=== PATIENT | male | born 2005 | race Caucasian/White ===

== ENCOUNTER 2023-12-27 21:29 | Emergency (ER) | payer OTHER, SELFPAY ==
--- NOTE | ~2023-12-27 | XR_ITS ---
EXAMINATION: XR CHEST CLINICAL INFORMATION: Cough COMPARISON: None available. TECHNIQUE: 2 views of the chest were obtained. FINDINGS: Patchy consolidation is seen in the right upper lobe. The exam is otherwise unremarkable XR/XR chest 2V IMPRESSION: Right upper lobe pneumonia. Electronically signed by: Tawanda Reis MD 12/27/2023 11:10 PM EDT
[2023-12-27 21:33] VITALS: BP 141/81; PULSE 96; RESP 18; TEMP 36.8; O2SAT 99; BMI 37.4
--- NOTE | 2023-12-27 21:45 | ED.URI ---
HPI - URI/Sore Throat General Chief Complaint: Upper Respiratory Symptoms Stated Complaint: coughing/coughed up blood Time Seen by Provider: 12/27/23 21:42 Source: patient and old records reviewed Mode of arrival: ambulatory Limitations: no limitations History of Present Illness ED Provider: MAYKEL NG Narrative: 18 yo male with no sig PMH he has hx of smoking here with c/o 4 days of cough and then he has mucous and sputum production has seen blood in it before. He is not on thinners. He has no travel hx of exposures. He notes cough is much worse at night. When this first started he felt sweats and chills but that is much better. He notes at the beginning he had a fever of 101. Went to urgent care center who prescribed flonase and dwayne SHERMAN elicited complaint: cough and nasal congestion Onset (ago): day(s) (4) Consistency: constant Severity: moderate Description of mucous: yellow and other (some hemoptysis this AM) Able to tolerate fluids by mouth: Yes Exacerbating factors: other (coughing) Relieving factors: nothing Associated symptoms: fever, chills, myalgias, headache, nasal congestion and cough Treatments prior to arrival: none Related Data Previous Rx's ?Medication ?Instructions ?Recorded amoxicillin 875 mg-potassium 1 tab PO BID #14 tabs 12/27/23 clavulanate 125 mg tablet azithromycin 250 mg tablet 250 mg PO DAILY 4 days #4 tabs 12/27/23 Allergies Allergy/AdvReac Type Severity Reaction Status Date / Time No Known Allergies Allergy Verified 12/27/23 21:34 Review of Systems Review of Systems: Constitutional : pos Fever, pos Chills, No Fatigue ENT/Mouth : No sore throat, No Rhinorrhea Eyes: No Eye Pain, No Swelling, No Redness Cardiovascular : No Chest Pain, No SOB, No Dyspnea on Exertion Respiratory :pos Cough, pos Sputum Gastrointestinal : No Nausea, No Vomiting, No Diarrhea, No abdominal Pain Genitourinary : No Dysuria, No Urinary Frequency, No Hematuria, Musculoskeletal : No joint pain, No Myalgias, No Joint Swelling Skin : No Skin Lesions, No rash Neuro : No Weakness, No Numbness, No Dizziness, positive Headache Psych : No Anxiety/Panic, No Depression All other systems reviewed and are negative PENDING SALE TO [facility] Past Medical History Attestation statement: The following information was validated with the patient. Source: old records reviewed Medical History No pertinent past medical history Social History Social History (Updated 12/27/23 @ 22:26 by Simran Thacker DO) Patient Tobacco Use Status: Current everyday Tobacco user Smoked in Last 30 Days: No Use of substances other than those prescribed or required for medical reasons: Yes Substance Use Type: Marijuana Substance Use Frequency: Monthly Last Used Substance: Weeks (ago) Any prior treatment program specific to substance use: No Advance Directives: No Advance Directives Information Provided: No Physical Exam Vital Signs: Vital Signs: Last Vital Signs Temp 97.6 F 12/27/23 22:58 Pulse 86 12/27/23 22:58 Resp 18 12/27/23 22:58 BP 129/73 12/27/23 22:58 Pulse Ox 98 12/27/23 22:58 O2 Del Method Room Air 12/27/23 22:58 BMI result Body Mass Index 37.4 Appearance: Alert. Oriented X3. No acute distress. Eyes: Pupils equal, round and reactive to light. ENT: Pharynx normal. Neck: Normal inspection. Neck supple. CVS: Normal heart rate and rhythm. Pulses normal. Respiratory: No respiratory distress. Breath sounds diminished throughout - decreased RLL Abdomen: Soft and nontender. Skin: Skin warm and dry. Normal skin color. Extremities: No lower extremity edema. Neuro: Oriented X 3. No motor deficit. No sensory deficit. Medications Administered Discontinued Medications Generic Name Dose Route Start Last Admin Trade Name Freq PRN Reason Stop Dose Admin Azithromycin 500 mg 12/27/23 22:26 12/27/23 22:28 Azithromycin 500 Mg Tablet PO 12/27/23 22:27 500 mg ONCE ONE Administration Medical Decision Making Medical Decision Making MDM Narrative: 18 yo male with PMH of smoking but otherwise no PMH here with c/o cough, congestion, sputum production fevers that have resolved he denies travel or exposures. He has been coughing a lot and noted some blood in it this AM. He has no risk factors for VTE and given his age doubt lung cancer will obtain swabs and CXR Differential Diagnosis Differential Diagnoses: The differential diagnosis associated with the presentation includes bronchitis, viral infection, pneumonia Admission/Observation Consideration of admission/observation: Escalation of care including admission/observation considered not toxic, tolerating PO stable for DC Lab Data MDM Lab Attestation statement: I reviewed the patient's lab results. Labs: Lab Results 12/27/23 Range/Units 22:05 Influenza Type A (PCR) NEGATIVE (Negative) Influenza Type B (PCR) NEGATIVE (Negative) RSV RNA Qual (PCR) NEGATIVE (Negative) SARS-CoV-2 RNA (RT-PCR) NEGATIVE (Negative) Independent Interpretation I performed an independent interpretation of an: Plain X-Ray (RLL small infiltrate noted) Radiology Impression Discussion of test interpretation with radiology: I have reviewed the radiologist's reading. Independent Historian Clinical information obtained from an independent historian. History obtained from or confirmed by: Spouse Prescription Management I considered prescription management with: Antibiotic and Other Discharge Plan Discharge Clinical Impression: Upper respiratory infection Qualifiers: URI type: unspecified URI Qualified Code(s): J06.9 - Acute upper respiratory infection, unspecified Pneumonia Qualifiers: Pneumonia type: due to unspecified organism Laterality: right Lung location: lower lobe of lung Qualified Code(s): J18.9 - Pneumonia, unspecified organism Patient Disposition: Home, Self-Care Instructions: Upper Respiratory Infection (ED), Pneumonia (ED) Additional Instructions: return for worsening symptoms such as increased pain, bleeding, difficulty breathing or any other concerns negative for covid, flu, rsv on chest xray small area of developing pneumonia right lower lung On amoxicillin-clavulanate, softer bowel movements are to be expected. Call your provider if you move your bowels more than 4 times a day, your bowel movements are almost all liquid, or you get a rash.? On azithromycin, call your provider if you develop new ringing in your ears, new problems hearing, dizziness, palpitations, abdominal pain, nausea, or diarrhea. Prescriptions: New azithromycin 250 mg tablet 250 mg PO DAILY 4 Days Qty: 4 0RF Rx Instructions: start on day 2 of therapy amoxicillin-pot clavulanate 875-125 mg tablet 1 tab PO BID Qty: 14 0RF Stand Alone Forms: Work/School Release Interventions: ED Discharge Assessment Last Done: 12/27/23 22:58 Discharge Date/Time: 12/27/23 22:59 Print Language: Serbian
[2023-12-27] MEDS: Azithromycin 500 MG TABLET PO (22:28)
[2023-12-27 22:32] VITALS: BP 129/73; PULSE 86; RESP 18; TEMP 36.4; O2SAT 98
[2023-12-27 22:46] LABS: Influenza A PCR NEGATIVE (Negative); Influenza B PCR NEGATIVE (Negative); Resp Syncy Virus RNA Qual PCR NEGATIVE (Negative); SARS COV2 PCR INHOUSE NEGATIVE (Negative)
[2023-12-27 22:58] VITALS: BP 129/73; PULSE 86; RESP 18; TEMP 36.4; O2SAT 98
== END 2023-12-27 22:59 | disposition home or self-care (01) ==
PROVIDERS: Emergency Provider Emergency Medicine
DX: J18.9 Pneumonia, unspecified organism (principal); J06.9 Acute upper respiratory infection, unspecified; R05.9 Cough, unspecified; R09.81 Nasal congestion; M79.10 Myalgia, unspecified site; F50.9 Eating disorder, unspecified; F17.210 Nicotine dependence, cigarettes, uncomplicated; Z03.818 Encounter for observation for suspected exposure to other biological agents ruled out
CPT/HCPCS: 0241U; 71046; 99284

== ENCOUNTER 2024-04-01 10:49 | Emergency (ER) | payer OTHER, SELFPAY ==
--- NOTE | ~2024-04-01 | XR_ITS ---
EXAMINATION: XR LUMBAR SPINE 2-3 VIEWS, XR SACRUM COCCYX 2 OR MORE VIEWS HISTORY: low back pain s/p fall COMPARISON: There are no prior studies for comparison. FINDINGS: AP, lateral, and coned down views of the lumbar spine and additional views of the sacrum and coccyx are submitted. Osseous mineralization is normal. Five nonrib-bearing lumbar vertebral bodies are identified, maintaining normal height and alignment without evidence of fracture or spondylolisthesis. The sacrum is intact without evidence of fracture.. The intervertebral disc spaces are preserved. The posterior elements are intact. The visualized paraspinal soft tissues are unremarkable. XR/XR lumbar spine 2-3V IMPRESSION: Unremarkable examination of the lumbar spine and sacrum and coccyx. Electronically signed by: Kain Diamond MD 04/01/2024 12:22 PM AUGUST
--- NOTE | ~2024-04-01 | XR_ITS ---
EXAMINATION: XR LUMBAR SPINE 2-3 VIEWS, XR SACRUM COCCYX 2 OR MORE VIEWS HISTORY: low back pain s/p fall COMPARISON: There are no prior studies for comparison. FINDINGS: AP, lateral, and coned down views of the lumbar spine and additional views of the sacrum and coccyx are submitted. Osseous mineralization is normal. Five nonrib-bearing lumbar vertebral bodies are identified, maintaining normal height and alignment without evidence of fracture or spondylolisthesis. The sacrum is intact without evidence of fracture.. The intervertebral disc spaces are preserved. The posterior elements are intact. The visualized paraspinal soft tissues are unremarkable. XR/XR sacrum coccyx min 2V IMPRESSION: Unremarkable examination of the lumbar spine and sacrum and coccyx. Electronically signed by: Kain Diamond MD 04/01/2024 12:22 PM AUGUST
--- NOTE | ~2024-04-01 | XR_ITS ---
EXAMINATION: XR HIP 1 VIEW RIGHT WITH PELVIS HISTORY: r buttock pain COMPARISON: There are no prior studies for comparison. FINDINGS: A single AP view of the pelvis and two views of the right hip are submitted. Osseous mineralization is normal. There is no fracture or dislocation. The joint space is maintained. The soft tissues are unremarkable. XR/XR hip RT w PEL1V IMPRESSION: Unremarkable examination of the right hip. Electronically signed by: Kain Diamond MD 04/01/2024 12:19 PM EST
--- NOTE | 2024-04-01 11:19 | ED_ITS ---
HPI - Back Pain/Injury General Chief Complaint: Back Pain/Injury Stated Complaint: R side back pain Time Seen by Provider: 04/01/24 12:36 History of Present Illness HPI Narrative: patient complains of 1 week of right low back pain, right buttock pain after slip and fall last week No head pain no neck pain no chest pain, no changes to bowel or bladder, no dysuria no frequency no head strike no headache no neck pain no numbness weakness or tingling, pain does radiate from the right upper gluteal area to the top of the right posterior thigh Related Data Previous Rx's ?Medication ?Instructions ?Recorded amoxicillin 875 mg-potassium 1 tab PO BID #14 tabs 12/27/23 clavulanate 125 mg tablet azithromycin 250 mg tablet 250 mg PO DAILY 4 days #4 tabs 12/27/23 acetaminophen 500 mg tablet 1,000 mg (2 x 500 mg) PO QID PRN 04/01/24 pain #30 tabs cyclobenzaprine 5 mg tablet 5 mg PO TID PRN muscle spasm #10 04/01/24 tabs ibuprofen 600 mg tablet 600 mg PO Q6H PRN pain #20 tabs 04/01/24 Allergies Allergy/AdvReac Type Severity Reaction Status Date / Time No Known Allergies Allergy Verified 04/01/24 11:24 [facility] Past Medical History Source: nursing notes reviewed Medical History No pertinent past medical history Social History Social History (Updated 12/27/23 @ 22:26 by Simran Thacker DO) Patient Tobacco Use Status: Current everyday Tobacco user Substance Use Type: Marijuana Physical Exam Vital Signs: Vital Signs: Last Vital Signs Temp 97.9 F 04/01/24 11:21 Pulse 100 04/01/24 11:21 Resp 16 04/01/24 11:21 BP 124/63 04/01/24 11:21 Pulse Ox 100 04/01/24 11:21 O2 Del Method Room Air 04/01/24 11:21 BMI result Body Mass Index 39.3 general appearance is no acute distress Head normocephalic atraumatic Neck is supple nontender Chest wall nontender no respiratory distress Abdomen is soft and nontender The back had no focal bony tenderness, almost all tenderness is right gluteal, no flank tenderness Extremities the right hip has full range of motion and patient can bear weight easily, no significant hip tenderness Extremities are full range of motion x4 Skin no rash Neuro no focal motor or sensory deficits Course Course Course Narrative: This is a Rapid Medical Exam performed in triage by Melvi Sorensen PA-C. Full HPI, ROS and PE to be performed by primary ED provider. 18yo M presenting to the ED c/o right upper buttock pain s/p slip & fall onto right side 1 week ago. denies notable bruising. denies incontinence/retention PE: refusing to sit 2/2 pain, ambulating w/steady gait, area not evaluated in triage Plan: XRs, pain control X-rays were negative Patient is neurologically intact no changes to bowel or bladder, no fractures, ambulates with mild discomfort but ambulates easily and patient is discharged with diagnosis muscle strain Discharge Plan Discharge Clinical Impression: Back pain Patient Disposition: Home, Self-Care Additional Instructions: x-rays of hip and back were all negative so no broken bone seen This is likely strain of muscles in the gluteal area and the lower back This usually resolves on its own Follow with primary doctor if available if not better Return any time any worse condition or any concerns Prescriptions: New ibuprofen 600 mg tablet 600 mg PO Q6H PRN (Reason: pain) Qty: 20 0RF acetaminophen 500 mg tablet 1,000 mg PO QID PRN (Reason: pain) Qty: 30 0RF cyclobenzaprine 5 mg tablet 5 mg PO TID PRN (Reason: muscle spasm) Qty: 10 0RF No Action azithromycin 250 mg tablet 250 mg PO DAILY 4 Days Qty: 4 0RF Rx Instructions: start on day 2 of therapy amoxicillin-pot clavulanate 875-125 mg tablet 1 tab PO BID Qty: 14 0RF Print Language: Bahamian
[2024-04-01 11:21] VITALS: BP 124/63; PULSE 100; RESP 16; TEMP 36.6; O2SAT 100; BMI 39.3
[2024-04-01 14:06] VITALS: BP 124/63; PULSE 100; RESP 16; TEMP 36.6; O2SAT 100
== END 2024-04-01 14:06 | disposition home or self-care (01) ==
PROVIDERS: Emergency Provider Emergency Medicine
DX: S39.92XA Unspecified injury of lower back, initial encounter (principal); M54.50 Low back pain, unspecified; M25.551 Pain in right hip; M53.3 Sacrococcygeal disorders, not elsewhere classified; W01.0XXA Fall on same level from slipping, tripping and stumbling without subsequent striking against object, initial encounter; Y93.89 Activity, other specified; Y92.89 Other specified places as the place of occurrence of the external cause; Y99.8 Other external cause status
CPT/HCPCS: 72100; 72220; 73502; 99282; 99283

== ENCOUNTER → 2024-04-01 11:21 | Outpatient (BNV) | payer OTHER, SELFPAY | PROVIDERS: Emergency Provider Emergency Medicine; Visit Provider Radiology Diagnostic Radiology | DX: M25.551 Pain in right hip (principal); M54.50 Low back pain, unspecified | CPT/HCPCS: 72100; 72220; 73502 ==

== ENCOUNTER 2024-07-02 01:50 | Emergency (ER) | payer OTHER, SELFPAY ==
--- NOTE | ~2024-07-02 | XR_ITS ---
CLINICAL HISTORY: injury, pain 3 view left ankle Comparison: None Findings: No displaced fracture. No dislocation. Soft tissue swelling present with moderate effusion. No radiopaque retained foreign body. IMPRESSION: 1. No acute fracture or dislocation. 2. Soft tissue swelling, with effusion present. This document has been electronically signed by: Magen Mcfadden MD on 07/02/2024 02:35:22
[2024-07-02 01:56] VITALS: BP 152/61; PULSE 109; RESP 18; TEMP 36.6; O2SAT 98; BMI 37.7
--- NOTE | 2024-07-02 02:42 | PC.NURSE ---
Provider to [facility] for eval.
--- NOTE | 2024-07-02 02:48 | ED.LOWEXIN ---
HPI - Extremity Injury (Lower) General Chief Complaint: Extremity Injury, Lower Stated Complaint: twisted ankle at work Time Seen by Provider: 07/02/24 02:35 Source: patient Mode of arrival: ambulatory Limitations: no limitations History of Present Illness ED Provider: PING PAUL PA-C HPI Narrative: 19-year-old male with no significant pmhx presents to the ED today for evaluation of left ankle pain/swelling s/p injury occurring around 2300 yesterday. Patient states he was jogging to an area around work when he stepped on something, causing his left ankle to roll. Reports immediate pain to the lateral aspect of his ankle. He has been able to ambulate with some discomfort. He did not trial any [id number] pain medications prior to arrival in ED. Denies any numbness/tingling/weakness to the left lower extremity. Denies falling to the ground. Denies head strike or LOC. Denies anticoagulation. Related Data Previous Rx's ?Medication ?Instructions ?Recorded amoxicillin 875 mg-potassium 1 tab PO BID #14 tabs 12/27/23 clavulanate 125 mg tablet azithromycin 250 mg tablet 250 mg PO DAILY 4 days #4 tabs 12/27/23 acetaminophen 500 mg tablet 1,000 mg (2 x 500 mg) PO QID PRN 04/01/24 pain #30 tabs cyclobenzaprine 5 mg tablet 5 mg PO TID PRN muscle spasm #10 04/01/24 tabs ibuprofen 600 mg tablet 600 mg PO Q6H PRN pain #20 tabs 04/01/24 Allergies Allergy/AdvReac Type Severity Reaction Status Date / Time No Known Allergies Allergy Verified 07/02/24 01:57 Review of Systems Review of Systems: Yes all other systems are reviewed and are negative [facility] Past Medical History Attestation statement: The following information was validated with the patient. Source: old records reviewed and nursing notes reviewed Medical History No pertinent past medical history Social History Social History Patient Tobacco Use Status: Current everyday Tobacco user Substance Use Type: Marijuana Advance Directives: No Advance Directives Information Provided: Yes Do you have a plan to hurt others: No Plan Physical Exam Vital Signs: Vital Signs: Last Vital Signs Temp 97.8 F 07/02/24 03:34 Pulse 109 H 07/02/24 03:34 Resp 18 07/02/24 03:34 BP 152/61 H 07/02/24 03:34 Pulse Ox 98 07/02/24 03:34 O2 Del Method Room Air 07/02/24 03:34 BMI result Body Mass Index 37.7 Hypertensive, tachycardic General: well appearing, in no acute distress. Skin: Warm, dry, intact. No rashes or lesions. Head: Normocephalic, atraumatic. EENT: Hearing is intact b/l. Conjunctiva clear. PERRLA. EOM intact. Moist mucous membranes.? Cardiac: Chest wall symmetric. RRR Lungs: Normal respiratory effort without accessory muscle use. CTA bilaterally Back: No midline spinous or paraspinal tenderness. No step off deformity. Ext: + noted swelling to lateral aspect of left ankle. No obvious deformity. No overlying erythema or ecchymoses. Limited ROM to dorsiflexion/plantar flexion and inversion/eversion of left ankle. Sensation intact. 2+ DP pulse intact. Ambulating with slight limping gait. Neuro: AOx3. Normal speech. Ambulating with steady gait. Course Course Course Narrative: X-ray left ankle without fracture. Exam consistent with ankle sprain. Patient placed in walking boot and provided with crutches. Medicated with Toradol. Advised ortho follow-up. Educated on rice treatment. Patient has remained stable throughout ED visit today. Discussed worrisome signs and symptoms and when to return to the ED. All questions answered at this time. Patient is agreeable with disposition and stable for discharge. Medications Administered Discontinued Medications Generic Name Dose Route Start Last Admin Trade Name Freq PRN Reason Stop Dose Admin Ketorolac Tromethamine 30 mg 07/02/24 02:48 07/02/24 02:54 Ketorolac Tromethamine 30 Mg/Ml Vial IM 07/02/24 02:49 30 mg ONCE ONE Administration Medical Decision Making Medical Decision Making [facility] Narrative: 19-year-old male with no significant pmhx presents to the ED today for evaluation of left ankle pain/swelling s/p injury occurring around 2300 yesterday. Patient is tachycardic and hypertensive. Vitals are otherwise WNL. He is nontoxic-appearing and in no acute distress. On exam, noted swelling to lateral aspect of left ankle. No obvious deformity. No overlying erythema or ecchymoses. Limited ROM to dorsiflexion/plantar flexion and inversion/eversion of left ankle. Sensation intact. 2+ DP pulse intact. Ambulating with slight limping gait. Differential diagnosis includes ankle sprain, ankle strain, contusion, fracture, dislocation. Presentation not consistent with gout, pseudogout, septic joint, Lyme arthritis. Unlikely DVT, neurovascular compromise, threat to limb, compartment syndrome. X-rays obtained from triage. Plan for pain control, review and re-evaluation. Differential Diagnosis Differential Diagnoses: The differential diagnosis associated with the presentation includes As above Admission/Observation Not indicated Independent Interpretation I performed an independent interpretation of an: Plain X-Ray Interpretation: X-ray left ankle without fracture Radiology Impression Discussion of test interpretation with radiology: I have reviewed the radiologist's reading. Radiologist Impression: Procedure(s): XR ankle LT 2V Accession Number(s): [id number] cc: Physician,Unknown ; Alton Montesinos MD~ CLINICAL HISTORY: injury, pain 3 view left ankle Comparison: None Findings: No displaced fracture. No dislocation. Soft tissue swelling present with moderate effusion. No radiopaque retained foreign body. IMPRESSION: 1. No acute fracture or dislocation. 2. Soft tissue swelling, with effusion present. This document has been electronically signed by: Magen Mcfadden MD on 07/02/2024 02:35:22 Prescription Management I considered prescription management with: Pain Medication Social Determinants Patient?s care significantly limited by Social Determinants of Health including: Other Social Determinant of Health Procedures Orthopedic Splinting/Casting Injury #1: Side: left Lower Extremity Injury Location: ankle Lower Extremity Immobilizer: boot orthosis Other Orthopedic Equipment: crutches Critical Care Time Critical Care Time Critical Care Time: No Discharge Plan Discharge Clinical Impression: Left ankle sprain Patient Disposition: Home, Self-Care Instructions: Ankle Sprain (ED), Crutch Instructions (ED), P.R.I.C.E. Treatment (ED), Walking Boot (ED) Additional Instructions: You have been evaluated in the Emergency Department today for left ankle pain. Your x-rays do not demonstrate fracture. As discussed, I am concerned you may have a ligament or tendon injury. I have placed you in a walking boot and provided you with crutches. 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 Rest, ice, compress and elevate your left ankle. See home care instructions. end you take 600mg ibuprofrs or tylenol 650mg every 6 hours as nr pain. If needed, you can alternate these medications so that you take one medication every 3 hours. For example, at noon take ibuprofen, then at 3pm take tylenol, then at 6pm take ibuprofen.? Please follow-up with an orthopedic doctor. You have been provided with a referral. Call them to make an appointment, they will not call you. Return to the Emergency Department if you experience worsening pain, numbness, tingling, change of color in your toes, or any other concerning symptoms. Prescriptions: No Action ibuprofen 600 mg tablet 600 mg PO Q6H PRN (Reason: pain) Qty: 20 0RF acetaminophen 500 mg tablet 1,000 mg PO QID PRN (Reason: pain) Qty: 30 0RF cyclobenzaprine 5 mg tablet 5 mg PO TID PRN (Reason: muscle spasm) Qty: 10 0RF azithromycin 250 mg tablet 250 mg PO DAILY 4 Days Qty: 4 0RF Rx Instructions: start on day 2 of therapy amoxicillin-pot clavulanate 875-125 mg tablet 1 tab PO BID Qty: 14 0RF Referrals: [facility] [Provider Group] Stand Alone Forms: Work/School Release Interventions: ED Discharge Assessment Last Done: 07/02/24 03:34 Discharge Date/Time: 07/02/24 03:34 Print Language: [place] Citizen
[2024-07-02] MEDS: Ketorolac Tromethamine 30 MG/ML VIAL IM (02:54)
[2024-07-02 03:34] VITALS: BP 152/61; PULSE 109; RESP 18; TEMP 36.6; O2SAT 98
== END 2024-07-02 03:34 | disposition home or self-care (01) ==
PROVIDERS: Emergency Provider Internal Medicine; PCP Physician Assistant Medical
DX: S93.402A Sprain of unspecified ligament of left ankle, initial encounter (principal); X50.1XXA Overexertion from prolonged static or awkward postures, initial encounter; Y93.02 Activity, running; M25.572 Pain in left ankle and joints of left foot; Y92.9 Unspecified place or not applicable; Y99.0 Civilian activity done for income or pay
CPT/HCPCS: 73600; 96372; 99283; 99284; J1885

== ENCOUNTER → 2024-07-02 02:04 | Outpatient (BNV) | payer OTHER, SELFPAY | PROVIDERS: Emergency Provider Internal Medicine; Visit Provider Radiology Neuroradiology | DX: M25.472 Effusion, left ankle (principal) | CPT/HCPCS: 73600 ==